=== PATIENT | male | born 1935 ===

== ENCOUNTER 2020-06-28 08:57 | Observation (INO) | payer MEDICARE, OTHER ==
[~2020-06-28] VITALS: Ht 180.3 cm; Wt 96.7 kg
[~2020-06-28 08:57] MED LIST: AMLO5 PO; ASPI81CH PO; CAPS28.3TC; FERR325 PO; FISH1000 PO; HYDACE10B PO; LOPE2C PO; NAPR500 PO; Norco 10-325 T1 EACH PO; OMEG1CAP30 PO; OMEP20ER PO; Zithromax250 MG PO
[2020-06-28 09:35] LABS: BASOPHILS ABSOLUTE AUTO 0.06 K/mm3 (0.00-0.23); BASOPHILS PERCENT AUTO 1 % (0-2); EOSINOPHILS ABSOLUTE AUTO 0.14 K/mm3 (0.00-0.68); EOSINOPHILS PERCENT AUTO 2 % (0-6); Hematocrit 45.7 % (37.0-53.0); Hemoglobin 15.4 g/dL (13.5-17.5); IMMATURE GRAN ABSOLUTE AUTO 0.02 K/mm3 (0.00-0.10); IMMATURE GRAN PERCENT AUTO 0 % (0-1); LYMPHOCYTES PERCENT AUTO 25 % (21-46); MONOCYTES ABSOLUTE AUTO 0.72 K/mm3 (0.16-1.47); MONOCYTES PERCENT AUTO 9 % (4-13); Mean Corpuscular HGB 29.1 pg (26.0-34.0); Mean Corpuscular HGB Conc 33.7 g/dL (31.5-36.5); Mean Corpuscular Volume 86 fL (80-100); Mean Platelet Volume 11.7 fL (9.1-12.4); NEUTROPHILS ABSOLUTE AUTO 5.36 K/mm3 (1.96-9.15); NEUTROPHILS PERCENT AUTO 64 % (41-73); Platelet Count 232 K/mm3 (150-400); RDW Coefficient Variation 16.7 % (11.7-14.2); RDW Standard Deviation 51.9 fL (35.1-46.3)
[2020-06-28] MEDS ORDERED: FISH OIL 1,2001 EAC7 PO (09:43)
[2020-06-28 10:07] LABS: Alanine Aminotransfer (ALT/SGP 48 U/L (12-78); Albumin, Blood 3.3 g/dL (3.4-5.0); Albumin/Globulin Ratio 0.8 (0.8-1.8); Alk Phos 80 U/L (50-136); Anion Gap 7 mmol/L (6-16); Aspartate Aminotrans (AST/SGOT 26 U/L (12-37); Bilirubin, Total 1.3 mg/dL (0.1-1.0); Blood Urea Nitrogen 14 mg/dL (8-24); Bun/Creatinine Ratio 11.9 (12.0-20.0); CO2, Blood 24 mmol/L (21-32); Calcium, Blood 8.7 mg/dL (8.5-10.1); Chloride, Blood 111 mmol/L (98-108); Creatinine, Blood 1.18 mg/dL (0.60-1.20); Free Thyroxine 1.05 ng/dL (0.70-1.60); Glomerular Filtration Rate >60 (60-); Glucose, Blood 79 mg/dL (70-99); Potassium, Blood 4.1 mmol/L (3.5-5.5); Sodium, Blood 142 mmol/L (136-145); Total Protein, Blood 7.3 g/dL (6.4-8.2); Troponin I 0.048 ng/mL (0.000-0.040)
[2020-06-28] MEDS ORDERED: MULVITA PO (14:11)
--- NOTE | 2020-06-28 15:27 | NUR ---
Pt arrived to PCU 15 via stretcher, able to easily stand and transfer to the bed. Sitting on side of bed, denies dyspnea, denies chest discomfort, denies palpitations. STates that he just "wasn't feeling very well" with nonspecific generalized ill feeling at home, and after 1 week of that decided to go to the [facility] urgent care clinic. Pt asked at least 2-3 times why he was here in the hospital. Commonlaw Kerri states she has noticed some decline in his memory, over the past year, especially the past 2 months. States that he was having a cough which she though was possibly seasonal allergies/bronchitis. Pt denies using Cpap/bipap nor oxygen at home. 2nd troponin was drawn just a few minutes ago. He has been sitting on side of bed, eating a sandwich, and has no compliants at this time. NO needs voiced.
[2020-06-29 04:05] LABS: Hematocrit 49.7 % (37.0-53.0); Hemoglobin 16.7 g/dL (13.5-17.5); Mean Corpuscular HGB 29.2 pg (26.0-34.0); Mean Corpuscular HGB Conc 33.6 g/dL (31.5-36.5); Mean Corpuscular Volume 87 fL (80-100); Mean Platelet Volume 12.1 fL (9.1-12.4); Platelet Count 166 K/mm3 (150-400); RDW Coefficient Variation 17.5 % (11.7-14.2); Red Blood Cell Count 5.71 M/mm3 (4.30-5.90); White Blood Cell Count 9.46 K/mm3 (4.00-11.30)
[2020-06-29 04:37] LABS: Anion Gap 8 mmol/L (6-16); Blood Urea Nitrogen 25 mg/dL (8-24); Bun/Creatinine Ratio 21.7 (12.0-20.0); CHOL/HDL RATIO 1.6; CO2, Blood 20 mmol/L (21-32); Calcium, Blood 8.8 mg/dL (8.5-10.1); Chloride, Blood 113 mmol/L (98-108); Cholesterol 106 mg/dL (50-200); Creatinine, Blood 1.15 mg/dL (0.60-1.20); Glomerular Filtration Rate >60 (60-); Glucose, Blood 122 mg/dL (70-99); HDL Cholesterol 68 mg/dL (>39); LDL/HDL RATIO 0.3; Low Density Lipoprotein Chol 21 mg/dL (0-110); Potassium, Blood 4.4 mmol/L (3.5-5.5); Sodium, Blood 141 mmol/L (136-145); Triglycerides 85 mg/dL (30-160); Very Low Density Lipoprot Chol 17 mg/dL (6-32)
--- NOTE | 2020-06-29 05:11 | NUR ---
SHIFT SUMMARY PT RESTED WELL THROUGH NIGHT. ALERT AND ORIENTED - ABLE TO MAKE NEEDS KNOWN. SATS >90% ON ROOM AIR. TELE - STARTED SHIFT IN AFLUTTER, CONVERTED TO NSR AT ABOUT 0200, AND THEN BACK TO AFLUTTER AT 0300, AND FINALLY BACK IN NSR AT 0400. NO C/O CHEST PAIN, BUT PT DOES C/O GENERALIZED WEAKNESS. PT IRRITABLE, AND DOES NOT WANT TO COOPERATE WITH CARE TEAMS. PT ANXIOUS ABOUT GOING HOME. VOIDING TO URINAL, 1 LARGE BM. NO C/O PAIN. VSS. CALL LIGHT WITHIN REACH, BED IN LOWEST POSITION, WILL CONTINUE TO MONITOR.
--- NOTE | 2020-06-29 08:26 | NUR ---
Pt is anxious, forgetful, but alert and oriented to person, place, date, and current and most recent [place] president. States that he is just so surprised that he has heart disease. HE is eager to go home. He is also asking if he can continue drinking port wine, one drink per day, which amounts to 1 bottle per week.
[2020-06-29] MEDS ORDERED: ASPI81CH PO (09:57)
[2020-06-29] MEDS ORDERED: Lisinopril2.5 MG PO (09:57)
[2020-06-29] MEDS ORDERED: METO50ER PO (09:58)
[2020-06-29] MEDS ORDERED: FURO20 PO (09:59)
--- NOTE | 2020-06-29 10:32 | NUR ---
0930 Spoke with Kerri, pt's "girlfriend for 20 years" . Confirmed discharge date of today, and anticipated d/c time of 1030. Pharmacy confirmed with both the pt and Kerri SPorer. 1030 Pt education attempted throughout the morning, and printed materials provided at this time. The pt keeps repeating "I just can't believe that I have heart problems. NO one in my family ever had that, and everyone lived to be nearly 100". Over the morning when education was attempted, pt vascilated between "Ok, I'll do whatever they say" and "Well, I don't believe that. I'm 84 years old and I'm going to do what I want." Affirmed pt's freedom to choose, and autonomy as a person, also explaining that it is our responsiblity to give him the information so that he can make informed choices. Kerri tells me over the phone that pt drinks wine, and occasionally hot toddies, and had quit alcohol for over 40 days recently, but then 8 days before admission had started drinking wine again. She states that he intends to only drink 1-2 glasses, but usually winds up drinking the entire bottle. Pt is unreceptive to the idea that he should stop drinking. He states "I don't every drink more than 4 oz. at a time." He seems to have a very hard time accepting that he has any trouble with his heart, also asking, "are you sure that you didn't get my stuff mixed up with someone else's?" Educational information was reviewed with patient. Due to his dementia, and Kerri's invovement and concern for him, the eduational materials will also be reviewed with her when she arrives to take him home for discharge.
--- NOTE | 2020-06-29 11:28 | NUR ---
pt educational materials reviewed: heart failure, atrial fibrillation, medications, daily weight check, daily blood pressure and pulse check, follow up appointments with [facility] and referrals to be generated by [facility] (cardiology, GI). Reviewed with Kerri, pt's spouse of 21 years and with the patient. Pt continues to deny alcohol overuse, and also exhibits signs of denial of new diagnosis of heart failure and heart dysrhythmia. Kerri however is very eager to learn and to help the patient with his health. The pt defers to her often, saying that she will be keeping track of everything. PT states at times that he will do what he wants, and other times he says he wants to do what is recommended. Medications were faxed to [facility] [address].
== END 2020-06-29 11:31 | disposition home or self-care (01) ==
LOC: ER 08:57 → PCU 08:58
PROVIDERS: Emergency Medicine; Nurse Practitioner Acute Care; ADMIT Hospitalist
DX: I48.92 Unspecified atrial flutter (principal); I11.0 Hypertensive heart disease with heart failure; I50.22 Chronic systolic (congestive) heart failure; R77.8 Other specified abnormalities of plasma proteins; K92.2 Gastrointestinal hemorrhage, unspecified
CPT/HCPCS: 36415; 71045; 80048; 80053; 80061; 83735; 83880; 84439; 84443; 84484; 85025; 85027; 93005; 93010; 93306; 96374; 99285-25; A9270; G0378

== ENCOUNTER 2020-12-21 11:15 | Emergency (ER) | payer MEDICARE ==
[~2020-12-21] VITALS: Ht 182.9 cm; Wt 90.7 kg
[~2020-12-21 11:15] MED LIST changes: +FISH OIL 1,2001 EAC7 PO; +FURO20 PO; +Lisinopril2.5 MG PO; +METO50ER PO; +MULVITA PO
[2020-12-21 11:51] LABS: Hematocrit 48.1 % (37.0-53.0); Hemoglobin 16.8 g/dL (13.5-17.5); Mean Corpuscular HGB 30.4 pg (26.0-34.0); Mean Corpuscular HGB Conc 34.9 g/dL (31.5-36.5); Mean Corpuscular Volume 87 fL (80-100); Mean Platelet Volume 12.5 fL (9.1-12.4); Platelet Count 188 K/mm3 (150-400); RDW Coefficient Variation 17.6 % (11.7-14.2); RDW Standard Deviation 54.8 fL (35.1-46.3); Red Blood Cell Count 5.53 M/mm3 (4.30-5.90)
[2020-12-21 11:52] LABS: White Blood Cell Count 7.73 K/mm3 (4.00-11.30)
[2020-12-21 12:11] LABS: BASOPHILS PERCENT MAN 0 % (0-2); EOSINOPHILS ABSOLUTE MAN 0.07 K/mm3 (0.00-0.68); EOSINOPHILS PERCENT MAN 1 % (0-6); LYMPHOCYTES % ATYPICAL MANUAL 3 % (0-0); LYMPHOCYTES ABSOLUTE MAN 1.93 K/mm3 (0.84-5.20); LYMPHOCYTES PERCENT MAN 22 % (21-46); MONOCYTES ABSOLUTE MAN 0.61 K/mm3 (0.16-1.47); MONOCYTES PERCENT MAN 8 % (4-13); SEG NEUTROPHILS PERCENT MAN 66 % (41-73); TOTAL CELLS COUNTED 100
[2020-12-21 12:16] LABS: Alanine Aminotransfer (ALT/SGP 24 U/L (12-78); Albumin/Globulin Ratio 0.7 (0.8-1.8); Alk Phos 101 U/L (50-136); Anion Gap 6 mmol/L (6-16); Aspartate Aminotrans (AST/SGOT 25 U/L (12-37); Bilirubin, Total 1.7 mg/dL (0.1-1.0); Blood Urea Nitrogen 20 mg/dL (8-24); Bun/Creatinine Ratio 15.3 (12.0-20.0); CO2, Blood 26 mmol/L (21-32); Calcium, Blood 9.2 mg/dL (8.5-10.1); Chloride, Blood 108 mmol/L (98-108); Creatinine, Blood 1.31 mg/dL (0.60-1.20); Globulin, Blood 4.4 g/dL (2.2-4.0); Glomerular Filtration Rate 52 (60-); Glucose, Blood 87 mg/dL (70-99); Magnesium, Blood 2.4 mg/dL (1.6-2.4); Potassium, Blood 4.6 mmol/L (3.5-5.5); Sodium, Blood 140 mmol/L (136-145); Total Protein, Blood 7.4 g/dL (6.4-8.2); Troponin I <0.015 ng/mL (0.000-0.040)
== END 2020-12-21 14:55 | disposition home or self-care (01) ==
LOC: ER 11:15
PROVIDERS: Emergency Medicine
DX: I48.92 Unspecified atrial flutter (principal); I48.91 Unspecified atrial fibrillation; I50.9 Heart failure, unspecified; Z79.899 Other long term (current) drug therapy; Z79.82 Long term (current) use of aspirin
CPT/HCPCS: 36415; 71045; 80053; 83735; 83880; 84484; 85025; 93005; 93010; 96374; 96375; 99285-25; A9270; J1940

== ENCOUNTER 2025-03-22 18:36 | Observation (INO) | payer OTHER ==
[~2025-03-22] VITALS: Ht 182.9 cm; Wt 89.0 kg
[2025-03-22] MEDS ORDERED: NS 1,000 ML IV SCH (20:00)
[2025-03-22 20:21] LABS: Anion Gap 12.0 mmol/L (3-11); Blood Urea Nitrogen 13.0 mg/dL (8-24); CO2, Blood 22.0 mmol/L (21-32); Calcium, Blood 9.4 mg/dL (8.5-10.1); Chloride, Blood 104.0 mmol/L (98-108); Creatinine, Blood 1.02 mg/dL (0.60-1.20); Glucose, Blood 148.0 mg/dL (70-99); Magnesium, Blood 2.1 mg/dL (1.6-2.4); Potassium, Blood 5.4 mmol/L (3.5-5.5); Sodium, Blood 133.0 mmol/L (136-145); Thyroid Stimulating Hormone 2.62 uIU/mL (0.360-4.800)
[2025-03-22 21:01] LABS: Hematocrit 48.5 % (37.0-53.0); Hemoglobin 16.3 g/dL (13.5-17.5); Mean Corpuscular HGB Conc 33.6 g/dL (31.5-36.5); Mean Corpuscular Volume 87 fL (80-100); Platelet Count 208 K/mm3 (150-400); RDW Coefficient Variation 16.0 % (11.7-14.2); RDW Standard Deviation 50.7 fL (35.1-46.3)
[2025-03-22 21:02] LABS: NRBC ABSOLUTE 0.00 K/mm3 (0.00-0.02); NRBC Auto 0.0 /100 WBC (0.0-0.2)
[2025-03-22 21:20] LABS: BASOPHILS ABSOLUTE MAN 0.00 K/mm3 (0.00-0.23); BASOPHILS PERCENT MAN 0 % (0-2); EOSINOPHILS ABSOLUTE MAN 0.00 K/mm3 (0.00-0.68); EOSINOPHILS PERCENT MAN 0 % (0-6); LYMPHOCYTES ABSOLUTE MAN 0.62 K/mm3 (0.84-5.20); LYMPHOCYTES PERCENT MAN 6 % (21-46); MONOCYTES ABSOLUTE MAN 0.31 K/mm3 (0.16-1.47); MONOCYTES PERCENT MAN 3 % (4-13); NEUTROPHILS ABSOLUTE MAN 9.51 K/mm3 (1.96-9.15); SEG NEUTROPHILS PERCENT MAN 91 % (41-73)
[2025-03-22 21:59] LABS: Source, Urine Clean Catch
[2025-03-22] MEDS ORDERED: Doxycycline Hyclate 100 MG in Dextrose 5% 250 ML IV ONE (22:05)
[2025-03-22] MEDS ORDERED: CefTRIAXone Sodium 1,000 MG in NS 100 ML IV ONE (22:05)
[2025-03-22 22:10] LABS: Bilirubin, Urine Neg (Neg); Glucose Qualitative, Urine 4+ (Neg); Ketones, Urine 2+ (Neg); Leukocyte Esterase, Urine Neg (Neg); Protein, Urine 1+ (Neg); Specific Gravity, Urine 1.020 (1.003-1.022); Urobilinogen, Urine NORM (Normal)
[2025-03-22 22:23] LABS: Color, Urine Yellow (P-Yellow)
[2025-03-22] MEDS ORDERED: FLU VACC TS2025(65UP)/MF59C/PF 45 MCG/0.5 ML SYRINGE IM SCH (22:50)
[2025-03-23 01:40] VITALS: BP 109/72
[2025-03-23 02:19] LABS: BASOPHILS ABSOLUTE AUTO 0.01 K/mm3 (0.00-0.23); BASOPHILS PERCENT AUTO 0 % (0-2); EOSINOPHILS ABSOLUTE AUTO 0.00 K/mm3 (0.00-0.68); EOSINOPHILS PERCENT AUTO 0 % (0-6); Hematocrit 47.0 % (37.0-53.0); Hemoglobin 15.6 g/dL (13.5-17.5); IMMATURE GRAN ABSOLUTE AUTO 0.03 K/mm3 (0.00-0.10); IMMATURE GRAN PERCENT AUTO 0 % (0-1); LYMPHOCYTES ABSOLUTE AUTO 0.91 K/mm3 (0.84-5.20); LYMPHOCYTES PERCENT AUTO 11 % (21-46); MONOCYTES ABSOLUTE AUTO 0.72 K/mm3 (0.16-1.47); MONOCYTES PERCENT AUTO 8 % (4-13); Mean Corpuscular HGB Conc 33.2 g/dL (31.5-36.5); Mean Corpuscular Volume 88 fL (80-100); NEUTROPHILS ABSOLUTE AUTO 6.89 K/mm3 (1.96-9.15); NEUTROPHILS PERCENT AUTO 81 % (41-73); NRBC ABSOLUTE 0.00 K/mm3 (0.00-0.02); NRBC Auto 0.0 /100 WBC (0.0-0.2); Platelet Count 198 K/mm3 (150-400); RDW Coefficient Variation 16.0 % (11.7-14.2); RDW Standard Deviation 51.2 fL (35.1-46.3)
[2025-03-23 03:00] LABS: Alanine Aminotransfer (ALT/SGP 17.0 U/L (12-78); Albumin, Blood 3.3 g/dL (3.4-5.0); Albumin/Globulin Ratio 0.7 (0.8-1.8); Anion Gap 9.0 mmol/L (3-11); Aspartate Aminotrans (AST/SGOT 20.0 U/L (12-37); Bilirubin, Total 1.1 mg/dL (0.1-1.0); Blood Urea Nitrogen 15.0 mg/dL (8-24); CO2, Blood 25.0 mmol/L (21-32); Calcium, Blood 9.1 mg/dL (8.5-10.1); Chloride, Blood 106.0 mmol/L (98-108); Creatinine, Blood 0.93 mg/dL (0.60-1.20); Globulin, Blood 4.5 g/dL (2.2-4.0); Glucose, Blood 113.0 mg/dL (70-99); Magnesium, Blood 2.0 mg/dL (1.6-2.4); Potassium, Blood 4.2 mmol/L (3.5-5.5); Sodium, Blood 136.0 mmol/L (136-145); Total Protein, Blood 7.8 g/dL (6.4-8.2)
[2025-03-23] MEDS ORDERED: JARDIANCE10 MG PO (03:17)
[2025-03-23] MEDS ORDERED: SPIR25 PO (03:18)
--- NOTE | 2025-03-23 05:36 | NUR ---
SHIFT SUMMARY: PT AOX2 TO SELF AND TIME, LIKELY ONLY BECAUSE ITS BRIAN. CALLS AT TIMES BUT OTHER TIMES IS IMPULSIVE. IS VERY PLEASANT AND FOLLOWS COMMANDS. PT WEAK REQUIRING 2PA UP TO THE BSC AND TO USE URINAL. LEGS WEAK AT TIME AND NEEDING TO SIT DOWN. CONSTANTLY NEEDING TO BE REMINDED WHY THEY ARE HERE. PT WHO IS POA REFUSED ANTIBIOTICS "UNTIL A DEFINITE SOURCE OF INFECTION" HAD BEEN FOUND. PT IN BED RESTING, BED IN LOWEST POSITION, CALL LIGHT IN REACH. CONTINUING CARE.
[2025-03-23 05:49] VITALS: BP 118/81
[2025-03-23 07:54] VITALS: BP 129/93
[2025-03-23] MEDS ORDERED: Lactobacil 2-S.Thermo-Bifido 1 1 Cap PO SCH (09:00)
--- NOTE | 2025-03-23 15:31 | NUR ---
DISCHARGE 1515 REVIEWED DISCHARGE WITH PATIENT AND HIS JOHN. PATIENT LEFT THE FLOOR BY WHEELCHAIR AND MEDICAL STAFF WITH TO HOME. PATIENT LEFT WITH ALL OF HIS BELONGINGS AND IN A STABLE CONDITION. IV REMOVED BY THE PHARMACY SPECIALIST WITHOUT INCIDENT.
[2025-03-28] MEDS ORDERED: POTCHL20ER PO (00:10)
[2025-03-28] MEDS ORDERED: ACET325 PO (09:21)
[2025-03-28] MEDS ORDERED: CAMPHOR MENTHOL TOP ×2 (09:54→09:55)
[2025-03-28] MEDS ORDERED: ARTHRITIS PAIN150 GM TOP (10:04)
[2025-03-28] MEDS ORDERED: FIBER (10:08)
== END 2025-03-23 14:23 | disposition home or self-care (01) ==
LOC: ER 18:36 → MEDS 18:37 → ENPENDDIS 03-23 12:53 → MEDS 03-23 14:23
PROVIDERS: Emergency Medicine; ADMIT Student in an Organized Health Care Education/Training Program
DX: J90 Pleural effusion, not elsewhere classified (principal); I48.91 Unspecified atrial fibrillation; I50.22 Chronic systolic (congestive) heart failure; I25.10 Atherosclerotic heart disease of native coronary artery without angina pectoris; F01.50 Vascular dementia, unspecified severity, without behavioral disturbance, psychotic disturbance, mood disturbance, and anxiety; W18.30XA Fall on same level, unspecified, initial encounter; Z66 Do not resuscitate; Z79.82 Long term (current) use of aspirin; Z79.899 Other long term (current) drug therapy
CPT/HCPCS: 36415; 70450; 71045; 71260; 80048; 80053; 82607; 83605; 83735; 83880; 84145; 84439; 84443; 85025; 87040; 93005; 93010; 93306; 96361; 96374; 97110; 97116; 97161; 99285-25; A9270; G0378; J0696; J7030; J7060; Q9967